=== PATIENT | female | born 2000 | race Caucasian/White ===

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

== ENCOUNTER 2018-01-05 08:42 | Emergency (ER) | payer MEDICAID ==
--- NOTE | 2018-01-05 09:11 | EDM.PDOC ---
ED HPI GENERAL MEDICAL PROBLEM - General Chief Complaint: Abdominal Pain Stated Complaint: FLANK PAIN Time Seen by Provider: 01/05/18 08:54 Source of Information: Reports: Patient, RN Notes Reviewed, Significant Other ( Girlfriend) History Limitations: Reports: No Limitations - History of Present Illness INITIAL COMMENTS - FREE TEXT/NARRATIVE: Medical records indicate that the patient was seen in this ED on 12/19/2017 for complaint of right upper quadrant abdominal pain for 1 week, made worse after eating fatty foods. On examination, the patient had slight right upper quadrant abdominal tenderness. A CBC and CMP were normal. Patient was discharged home with a prescription for Zofran, and subsequently underwent an outpatient ultrasound of the right upper quadrant on 12/26/2017, which returned normal. The patient states that she followed up with Shaji Reeves shortly after the ultrasound. At that time, he did not have the ultrasound results, however, he ordered some blood work, prescribed some nausea medication and a discussion was held regarding obtaining an outpatient HIDA scan. The patient had to go to [place], but now that she is back, she is to contact Dewayne Leandro to arrange for the HIDA scan. In addition to continued right upper quadrant abdominal pain and nausea, the patient reports that she has had a sore throat for the past 2-3 days, and a fever up to 103 yesterday. The patient states that she has had strep throat many times in the past, and, in fact, is a carrier. She states that she was going to have a tonsillectomy, but then lost her medical insurance. She states that she went to the walk-in clinic earlier today, but was sent here, because they are unable to deal with sore throats. Here in the ED, the patient is afebrile. Right Upper Abdomen Pain Score (Numeric/FACES): 9 - Related Data Allergies Allergy/AdvReac Type Severity Reaction Status Date / Time acetaminophen [From Vicodin] Allergy Dizziness Verified 12/19/17 23:09 hydrocodone [From Vicodin] Allergy Dizziness Verified 12/19/17 23:09 Home Meds: Home Meds Ondansetron [Ondansetron ODT] 4 mg PO Q6H PRN 01/05/18 [History] SUMAtriptan [Imitrex] 1 tab PO ASDIRECTED PRN #6 tablet 09/16/18 [Rx] SUMAtriptan [Imitrex] 25 mg PO ASDIRECTED PRN 01/05/18 [History] Past Medical History Psychiatric History: Reports: Anxiety (untreated) Dermatologic History: Reports: Psoriasis - Past Surgical History HEENT Surgical History: Reports: Oral Surgery (wisdom teeth extraction) Social & Family History - Tobacco Use Smoking Status *Q: Never Smoker - Caffeine Use Caffeine Use: Reports: None - Alcohol Use Alcohol Use History: No - Recreational Drug Use Recreational Drug Use: No - Living Situation & Occupation Living situation: Reports: Single, with Significant Other (Girlfriend) Occupation: Employed ([employer]) ED ROS GENERAL - Review of Systems Review Of Systems: ROS reveals no pertinent complaints other than HPI. ED EXAM, GENERAL - Physical Exam Exam: See Below Exam Limited By: No Limitations General Appearance: Alert, WD/WN, No Apparent Distress Eye Exam: Bilateral Eye: EOMI, Normal Inspection Ears: Normal External Exam, Normal Canal, Hearing Grossly Normal, Normal TMs Nose: Normal Inspection, Normal Mucosa, No Blood Throat/Mouth: Normal Inspection, Normal Lips, Normal Teeth, Normal Gums, Normal Voice, No Airway Compromise, Other (Bilateral tonsillar erythema, but no swelling. The remainder of the oropharynx appears to be normal.) Head: Atraumatic, Normocephalic Neck: Normal Inspection, Supple, Non-Tender, Full Range of Motion. No: Lymphadenopathy (L), Lymphadenopathy (R) Respiratory/Chest: No Respiratory Distress, Lungs Clear, Normal Breath Sounds, No Accessory Muscle Use Cardiovascular: Normal Peripheral Pulses, Regular Rate, Rhythm, No Edema, No Gallop, No JVD, No Murmur, No Rub Peripheral Pulses: 4+: Radial (L), Radial (R) GI/Abdominal: Normal Bowel Sounds, Soft, No Organomegaly, No Distention, No Abnormal Bruit, No Mass, Tender (Minimal, if any, tenderness to the right upper quadrant. Nontender elsewhere.) (Female) Exam: Deferred Rectal (Female) Exam: Deferred Back Exam: Normal Inspection, Full Range of Motion, NT Extremities: Normal Inspection, Normal Range of Motion, No Pedal Edema, Normal Capillary Refill Neurological: Alert, Oriented, Normal Cognition, No Motor/Sensory Deficits Psychiatric: Normal Affect Skin Exam: Warm, Dry, Intact, Normal Color, No Rash Course - Vital Signs Last Recorded V/S: Last Vital Signs Temp 37.2 C 01/05/18 08:50 Pulse 115 H 01/05/18 08:50 Resp 18 01/05/18 08:50 BP 137/79 01/05/18 08:50 Pulse Ox 96 01/05/18 08:50 - Orders/Labs/Meds Meds: Medications Discontinued Medications Generic Name Dose Route Start Last Admin Trade Name Hood PRN Reason Stop Dose Admin Penicillin G Benzathine 1.2 millunits 01/05/18 09:24 01/05/18 09:37 Bicillin L-A IM 01/05/18 09:25 1.2 millunits ONETIME ONE Administration - Re-Assessments/Exams Free Text/Narrative Re-Assessment/Exam: 01/05/18 09:09 The rapid strep test has been sent. No other workup is indicated at this time. 01/05/18 09:47 The patient's rapid strep test returned positive. She has received penicillin G benzathine 1.2 million Units IM. I will refer her to Dr. Apodaca, ENT, to arrange for a tonsillectomy. The patient also states that she has a migraine headache, and ordinarily takes Imitrex for it, but she is out. I will prescribe 6 tablets of Imitrex 50 mg, after which she can follow up with her PCP, Shaji Reeves, to obtain more. The patient is already going to follow-up with Mr. Reeves to arrange for an outpatient HIDA scan. Departure - Departure Time of Disposition: 09:51 Disposition: Home, Self-Care 01 Condition: Good Clinical Impression: Streptococcal pharyngitis, Migraine headache, Right upper quadrant abdominal pain of unknown etiology - Discharge Information *PRESCRIPTION DRUG MONITORING PROGRAM REVIEWED*: Not Applicable *COPY OF PRESCRIPTION DRUG MONITORING REPORT IN PATIENT FINN: Not Applicable Referrals: PCP,None [Primary Care Provider] - Mike Apodaca MD [Ordering Only Provider] - Forms: ED Department Discharge Additional Instructions: You were seen in the emergency room for continued upper right abdominal pain, a sore throat with fever, and a headache. Workup in the ER included a rapid strep test, which returned positive. You were treated with a one-time dose of intramuscular penicillin. Because you have already been identified as a strep carrier, please follow-up with the ENT Dr. Mike Apodaca, in [place], to arrange for a tonsillectomy. Follow-up with your PCP, Shaji Reeves, to arrange for an outpatient HIDA scan of your gallbladder. A prescription for Imitrex (sumatriptan) has been sent to the [facility] pharmacy, [address] [place] [address], located just south and across the [address] from [facility]. Take one tablet at the earliest onset of migraine symptoms. You may repeat 1 tablet after 2 hours, if needed. Follow-up with Shaji Reeves to arrange for additional prescriptions. If any other problems, please do not hesitate to return to the ER.
[2018-01-05] MEDS ORDERED: Penicillin G Benzathine 1,200,000 Units/2 ML Syringe IM ONE (09:24)
== END 2018-01-05 10:04 | disposition home or self-care (01) ==
LOC: JD.ED 08:42
DX: G43.909 Migraine, unspecified, not intractable, without status migrainosus (principal); J02.0 Streptococcal pharyngitis; R10.11 Right upper quadrant pain; Z88.8 Allergy status to other drugs, medicaments and biological substances
CPT/HCPCS: 87430; 96372; 99284; J0561

== ENCOUNTER 2018-09-09 23:42 | Emergency (ER) | payer MEDICAID ==
--- NOTE | 2018-09-10 00:03 | EDM.PDOC ---
ED HPI GENERAL MEDICAL PROBLEM - General Chief Complaint: Upper Extremity Injury/Pain Stated Complaint: HAND INJURY Time Seen by Provider: 09/09/18 23:53 Source of Information: Reports: Patient, RN Notes Reviewed History Limitations: Reports: No Limitations - History of Present Illness INITIAL COMMENTS - FREE TEXT/NARRATIVE: The patient states that she fell while skateboarding around 10:00 this morning, injuring her right hand. She denies hitting her head or suffering any other injury. No prior right hand injury. She reports pain and swelling to the dorsal aspect of her right hand, as well as not just paresthesia but anesthesia to all of her fingers. The patient's PCP is Shaji Reeves. - Related Data Allergies Allergy/AdvReac Type Severity Reaction Status Date / Time acetaminophen [From Vicodin] Allergy Dizziness Verified 12/19/17 23:09 bee venom protein (honey bee) Allergy Anaphylactic Verified 09/10/18 00:00 Shock hydrocodone [From Vicodin] Allergy Dizziness Verified 12/19/17 23:09 Home Meds: Home Meds Adalimumab [Humira] 40 mg SQ WEEKLY 09/10/18 [History] Amitriptyline HCl 100 mg PO DAILY 09/10/18 [History] Past Medical History Psychiatric History: Reports: Anxiety Dermatologic History: Reports: Psoriasis - Past Surgical History HEENT Surgical History: Reports: Oral Surgery (wisdom teeth extracton) Social & Family History - Tobacco Use Smoking Status *Q: Never Smoker - Caffeine Use Caffeine Use: Reports: None - Alcohol Use Alcohol Use History: No - Recreational Drug Use Recreational Drug Use: No - Living Situation & Occupation Living situation: Reports: Single, Other (with friends) Occupation: Employed ([employer]) Review of Systems - Review of Systems Review Of Systems: ROS reveals no pertinent complaints other than HPI. ED EXAM, GENERAL - Physical Exam Exam: See Below Exam Limited By: No Limitations General Appearance: Alert, WD/WN, No Apparent Distress Extremities: Other (Circular ecchymosis measuring approximately 4 cm diameter, with mild associated swelling and a very small central abrasion to the dorsal aspect of the right hand, over the third, fourth, and fifth MCP joints and metacarpal bones. The patient reports anesthesia to all fingers. Good distal pulses and capillary refill.) Course - Vital Signs Last Recorded V/S: Last Vital Signs Temp 36.9 C 09/09/18 23:51 Pulse 108 H 05/21/19 23:51 Resp 16 09/09/18 23:51 BP 147/110 H 09/09/18 23:51 Pulse Ox 98 09/09/18 23:51 - Re-Assessments/Exams Free Text/Narrative Re-Assessment/Exam: 09/10/18 00:01 The patient has a contusion to the dorsal aspect of her right hand. The swelling from the contusion could cause some paresthesia to her third fourth and fifth fingers, however, the patient is not only reporting paresthesia but anesthesia to all of her fingers, including the first and second, which makes no anatomic sense, given the location of her injury. She denies any injury to her wrist, arm, neck, or head. I have ordered x-rays of her right hand. 09/10/18 00:21 4-view radiographs of the right hand appear to be grossly normal. No fracture or dislocation identified. No foreign bodies identified. Formal read per the Radiologist pending. 09/10/18 00:56 X-ray results discussed with the patient and her friend. I'm recommending that the patient ice and elevate her hand for the next 2 days. She should take ibuprofen as needed for discomfort. If her paresthesia persists after the swelling has gone down, she should follow-up with her PCP for further evaluation. Departure - Departure Time of Disposition: 00:56 Disposition: Home, Self-Care 01 Condition: Good Clinical Impression: Contusion of right hand - Discharge Information *PRESCRIPTION DRUG MONITORING PROGRAM REVIEWED*: Not Applicable *COPY OF PRESCRIPTION DRUG MONITORING REPORT IN PATIENT FINN: Not Applicable Instructions: Hand Contusion Referrals: Shaji Reeves PA-C [Primary Care Provider] - Forms: ED Department Discharge Additional Instructions: You were seen in the emergency room after injuring your right hand when falling off a skateboard. Workup in the ER included x-rays of your right hand, which returned normal. No broken bones or dislocations were found. Based on your history, physical exam, and x-rays, it appears that you have contused (bruised the soft tissue) of your right hand. We recommend that you ice and elevate your right hand as much as possible for the next 48 hours, to help minimize swelling. Take [id number]-khftium ibuprofen, 2-3 tablets (400-600 mg) every 8 hours, with food, as needed for discomfort. If the tingling/numbness/decreased sensation in your right hand continues after the swelling has completely resolved, please follow-up with your PCP, Shaji Reeves, for further evaluation. If any other problems, please do not hesitate to return to the ER.
--- NOTE | 2018-09-10 12:23 | CR ---
Right hand: Four views of the right hand were obtained. Comparison: No prior hand exam. Soft tissue swelling is identified. Joint spaces are maintained. No fracture, dislocation or other bony abnormality is seen. Impression: 1. Soft tissue swelling. No bony abnormality is identified on right hand exam. Diagnostic code #2
== END 2018-09-10 01:05 | disposition home or self-care (01) ==
LOC: JD.ED 23:42
DX: S60.221A Contusion of right hand, initial encounter (principal); Z88.8 Allergy status to other drugs, medicaments and biological substances; V00.131A Fall from skateboard, initial encounter; Z88.5 Allergy status to narcotic agent; Z79.899 Other long term (current) drug therapy
CPT/HCPCS: 73130-26-RT; 73130-RT; 99282; 99283-25

== ENCOUNTER 2024-06-09 19:52 | Emergency (ER) | payer MEDICAID, OTHER ==
[2024-06-09] MEDS: Amoxicillin/Clavulanate K 875-125 MG Tab PO ONE (21:36)
== END 2024-06-09 21:37 | disposition home or self-care (01) ==
LOC: JD.ED 19:52
DX: H66.003 Acute suppurative otitis media without spontaneous rupture of ear drum, bilateral (principal); Z88.8 Allergy status to other drugs, medicaments and biological substances; Z91.030 Bee allergy status; Z88.5 Allergy status to narcotic agent; Z79.899 Other long term (current) drug therapy
CPT/HCPCS: 87428-QW; 87651-QW; 99284; A9270-GY